=== PATIENT | male | born 1945 | race Native Hawaiian/Other Pacific Islander ===

== ENCOUNTER 2021-06-08 17:55 | Emergency (ER) | payer OTHER, MEDICARE ==
[~2021-06-08] VITALS: Ht 177.8 cm; Wt 53.5 kg
[2021-06-08 18:50] LABS: PLATELET COUNT 199 K/uL (142-355)
[2021-06-08 18:56] LABS: POTASSIUM 4.4 mmol/L (3.6-5.2)
[2021-06-08 19:08] LABS: PARTIAL THROMBOPLASTIN TIME 33.6 SECONDS (24.5-33.6)
[2021-06-08 19:30] VITALS: BP 125/71; TEMP 98.1
== END 2021-06-08 19:35 | disposition home or self-care (01) ==
LOC: ED 17:55
PROVIDERS: Hospitalist
DX: R07.89 Other chest pain (principal); U07.1 COVID-19; J44.1 Chronic obstructive pulmonary disease with (acute) exacerbation; F17.210 Nicotine dependence, cigarettes, uncomplicated
CPT/HCPCS: 36415; 36600; 80053; 82550; 82805; 83880; 84484; 85027; 85379; 85610; 85730; 93005; 96374; 96375; 99284; J1100; J1885; J2405

== ENCOUNTER 2022-03-26 09:54 | Emergency (ER) | payer OTHER, MEDICARE ==
[~2022-03-26] VITALS: Ht 177.8 cm; Wt 53.5 kg
[2022-03-26 10:00] VITALS: TEMP 97.3
[2022-03-26 10:24] LABS: PLATELET COUNT 215 K/uL (142-355)
[2022-03-26 13:45] VITALS: BP 112/60
== END 2022-03-26 13:50 | disposition home or self-care (01) ==
LOC: ED 09:54
PROVIDERS: Emergency Medicine
DX: K52.89 Other specified noninfective gastroenteritis and colitis (principal)
CPT/HCPCS: 36415; 80053; 83690; 84484; 85027; 93005; 96360; 96374; 99284; J2405